=== PATIENT | male | born 1960 | race Caucasian/White ===

== ENCOUNTER 2017-02-06 19:08 | Emergency (ER) | payer OTHER ==
[~2017-02-06] VITALS: Ht 157.5 cm; Wt 72.0 kg
[2017-02-06 19:33] LABS: GLUCOSE,POINT OF CARE 373 MG/DL (70-110)
[2017-02-06] MEDS ORDERED: BUPIVACAINE HCL/PF 0.25% 10 ML VIAL INJ ONE (21:00)
[2017-02-06] MEDS ORDERED: HYDROCODONE/ACETAMINOPHEN 5-325 MG TABLET PO ONE (21:00)
[2017-02-06] MEDS ORDERED: PERTUSS(ACELL),DIPH,TET VAC/PF 0.5 ML VIAL IM ONE (21:00)
[2017-02-06] MEDS ORDERED: POVIDONE-IODINE 10% 15 ML SOLUTION UD TP ONE (21:00)
[2017-02-07] MEDS ORDERED: MetFORMIN HCL 500 MG TABLET PO ONE (00:15)
[2017-02-07 00:37] VITALS: BP 149/89
== END 2017-02-07 00:40 | disposition home or self-care (01) ==
LOC: EMS 19:10
DX: S91.321A Laceration with foreign body, right foot, initial encounter (principal); E11.9 Type 2 diabetes mellitus without complications; I10 Essential (primary) hypertension; W45.8XXA Other foreign body or object entering through skin, initial encounter; Y93.89 Activity, other specified; Y92.89 Other specified places as the place of occurrence of the external cause; Y99.8 Other external cause status
CPT/HCPCS: 12041; 73630; 82962; 90471; 90715; 99284; J3490